=== PATIENT | male | born 2000 | race Asian ===

== ENCOUNTER 2023-03-17 19:30 | Emergency (ER) | payer OTHER ==
[~2023-03-17] VITALS: Ht 180.3 cm; Wt 59.9 kg
[2023-03-17 19:41] VITALS: BP 135/70
--- NOTE | 2023-03-17 19:48 | NUR ---
TO LOBBY FOLLOWING TRIAGE, TERESSA SWAB OBTAINED AND SENT TO LAB
--- NOTE | 2023-03-17 20:04 | NUR ---
PT TAKEN TO RADIOLOGY
--- NOTE | 2023-03-17 20:06 | NUR ---
PT RETURN FROM [facility] TO [facility]
--- NOTE | 2023-03-17 20:33 | NUR ---
Dr. Blanco examining patient.
[2023-03-17] MEDS ORDERED: DEXT15SY7 PO (20:49)
[2023-03-17] MEDS ORDERED: ALBU0.0912 INH (20:49)
[2023-03-17 20:57] VITALS: BP 128/68
--- NOTE | 2023-03-17 20:57 | NUR ---
Patient discharged with v/s stable. Written and verbal after care instructions given and explained. Patient alert, oriented and verbalized understanding of instructions. Ambulatory with steady gait. All questions addressed prior to discharge. ID band removed. Patient advised to follow up with PMD. Rx of ALBUTEROL SULFATE HFA, TUSSIN COUGH given. Patient educated on indication of medication including possible reaction and side effects. Opportunity to ask questions provided and answered.
--- NOTE | 2023-03-17 20:57 | NUR ---
FIRST CONTACT WITH PT FOR DC ONLY. PT A&OX4, RR EVEN AND UNLABORED. NO S/S OF DISTRESS NOTED. PT VERBALIZES FULL UNDERSTANDING OF DC INSTRUCTIONS.
== END 2023-03-17 20:57 | disposition home or self-care (01) ==
LOC: MED 19:30
DX: J06.9 Acute upper respiratory infection, unspecified (principal); Z20.822 Contact with and (suspected) exposure to COVID-19; Z79.899 Other long term (current) drug therapy
CPT/HCPCS: 71045; 99284